=== PATIENT | male | born 1935 | race Caucasian/White ===

== ENCOUNTER 2016-12-10 08:37 | Emergency (ER) | payer MEDICARE, OTHER ==
[2016-12-10 08:49] VITALS: BP 139/78
--- NOTE | 2016-12-10 09:07 | UC ---
Respiratory Complaint HPI - HPI Summary HPI Summary: 81 yo male with sinus congestion/post nasal drip/cough and wheezing for about a month took ceftin which did not seem to help no CP no SOB no f/c - History of Current Complaint Chief Complaint: UCRespiratory Stated Complaint: COUGH, SINUS COMPLAINT Time Seen by Provider: 12/10/16 08:57 Hx Obtained From: Patient Onset/Duration: Gradual Onset, Lasting Weeks - 4 Timing: Constant Severity Initially: Mild Severity Currently: Moderate Pain Intensity: 2 Pain Scale Used: 0-10 Numeric Character: Cough: Productive - at times Aggravating Factors: Exertion, Recumbent Position Alleviating Factors: Nothing Associated Signs And Symptoms: Positive: Wheezing, Nasal Congestion, Sinus Discomfort - Allergies/Home Medications Allergies/Adverse Reactions: Allergies Allergy/AdvReac Type Severity Reaction Status Date / Time Sulfa Antibiotics Allergy Hives Verified 12/10/16 08:49 Home Medications: Home Medications Dextromethorphan LIQ(NF) [Scot-Tussin Diabetes CF (NF)] 10 mg PO BID 12/10/16 [ History Confirmed 12/10/16] GuaiFENesin DM* [Robitussin DM*] 5 ml PO Q6H PRN 12/10/16 [History Confirmed ] Guaifenesin-Codeine [Coditussin AC 200-10 mg/5Ml] 1 liq PO QPM 12/10/16 [ History Confirmed 12/10/16] guaiFENesin ER TAB [Mucinex*] 1,200 mg PO DAILY 12/10/16 [History Confirmed ] PMH/Surg Hx/FS Hx/Imm Hx Previously Healthy: Yes Endocrine History Of: Reports: Dyslipidemia Denies: Diabetes, Thyroid Disease, Hyperthyroidism, Hypothyroidism Cardiovascular History Of: Reports: Cardiac Disorders - CAD, stent performed 2015, Hypertension Denies: Pacemaker/ICD, Myocardial Infarction, Congestive Heart Failure, Atrial Fibrillation, Deep Vein Thrombosis, Bleeding Disorders Respiratory History Of: Denies: COPD, Asthma, Bronchitis, Pneumonia, Pulmonary Embolism GI/ History Of: Denies: Gastroesophageal Reflux, Ulcer, Gastrointestinal Bleed, Gall Bladder Disease, Kidney Stones, Diverticulitis, Renal Disease, Urosepsis Neurological History Of: Denies: TIA, CVA, Dementia, Seizures, Migraine Psychological History Of: Denies: Anxiety, Depression, Bipolar Disorder, Schizophrenia, Post Traumatic Stress Disorder Cancer History Of: Denies: Lung Cancer, Colorectal Cancer, Breast Cancer, Prostate Cancer, Cervical Cancer Other History Of: Anticoagulant Therapy Negative For: HIV, Hepatitis B - Aspirin and plavix., Hepatitis C - Surgical History Surgical History: Yes Surgery Procedure, Year, and Place: APPY, Cardiac Stent 07/17/16 - Family History Known Family History: Positive: Cardiac Disease, Hypertension, Diabetes - Social History Alcohol Use: Occasionally Substance Use Type: None Smoking Status (MU): Former Smoker Review of Systems Constitutional: Negative Skin: Negative Eyes: Negative ENT: Nasal Discharge Respiratory: Cough Cardiovascular: Negative Gastrointestinal: Negative Genitourinary: Negative Motor: Negative Neurovascular: Negative Musculoskeletal: Negative Neurological: Negative Psychological: Negative All Other Systems Reviewed And Are Negative: Yes Physical Exam Triage Information Reviewed: Yes Appearance: Well-Appearing, No Pain Distress, Well-Nourished Vital Signs: Initial Vital Signs Temp 97.8 F 12/10/16 08:40 Pulse 84 12/10/16 08:40 Resp 20 12/10/16 08:40 BP 139/78 12/10/16 08:40 Pulse Ox 98 12/10/16 08:40 Vital Signs Reviewed: Yes Eyes: Positive: Conjunctiva Clear. Negative: Conjunctiva Inflamed, Discharge ENT: Positive: Nasal congestion, Nasal drainage. Negative: Hearing grossly normal, Tonsillar swelling, Tonsillar exudate, Trismus, Muffled/hoarse voice Dental: Negative: Dental Fracture @, Abscess @ Respiratory: Positive: No respiratory distress, No accessory muscle use, Wheezing - with forced expiration Cardiovascular: Positive: RRR, No Murmur, Pulses Normal Musculoskeletal: Positive: ROM Intact, No Edema Neurological: Positive: Alert Psychological Exam: Normal Skin Exam: Normal UC Diagnostic Evaluation - Laboratory O2 Sat by Pulse Oximetry: 98 - normal/not hypoxic - Radiology Xray Interpretation: No Acute Changes Radiology Interpretation Completed By: Radiologist Respiratory Course/Dx - Differential Dx/Diagnosis Provider Diagnoses: acute bronchitis. sinusitis Discharge - Discharge Plan Condition: Stable Disposition: HOME Prescriptions: DOXYcycline CAP(*) [DOXYcycline 100MG CAP(*)] 100 mg PO BID #20 cap Patient Education Materials: Sinusitis (ED), Acute Bronchitis (ED) Referrals: Non Staff,Doctor [Primary Care Provider] - 5 Days Additional Instructions: use inhaler as directed
--- NOTE | 2016-12-10 09:20 | RAD ---
HISTORY: Cough COMPARISONS: May 31, 2012 VIEWS: 2: Frontal dual-energy and lateral views of the chest. FINDINGS: CARDIOMEDIASTINAL SILHOUETTE: The cardiomediastinal silhouette is normal. VIVIAN: The vivian are normal. PLEURA: The costophrenic angles are sharp. No pleural abnormalities are noted. LUNG PARENCHYMA: There is hyperinflation with flattening of the diaphragm and expansion of the AP diameter of the chest. ABDOMEN: The upper abdomen is clear. There is no subphrenic gas. BONES AND SOFT TISSUES: No bone or soft tissue abnormalities are noted. OTHER: None. IMPRESSION: HYPERINFLATION, CONSISTENT WITH COPD. NO ACTIVE CARDIOPULMONARY DISEASE.
[2016-12-10] MEDS ORDERED: Albuterol HFA INHALER* 8 gm MDI INH ONE (09:37)
== END 2016-12-10 09:56 | disposition home or self-care (01) ==
LOC: UCCORT 08:37
DX: J20.9 Acute bronchitis, unspecified (principal); J32.9 Chronic sinusitis, unspecified; Z88.2 Allergy status to sulfonamides; I25.10 Atherosclerotic heart disease of native coronary artery without angina pectoris; I10 Essential (primary) hypertension; Z79.01 Long term (current) use of anticoagulants
CPT/HCPCS: 71020; 99213; A9270-GY; G0463

== ENCOUNTER → 2018-05-13 07:32 | Day surgery (SDC) | payer MEDICARE, OTHER ==
--- NOTE | 2018-05-05 14:25 | HP ---
HISTORY AND PHYSICAL: DATE OF HISTORY AND PHYSICAL: 05/03/18 DATE OF ADMISSION: He is scheduled for surgery at [facility] on 05/13/18. ATTENDING PHYSICIAN: Dr. Bernstein.* (DICTATED BY CHUCKY EMMANUEL NP) CHIEF COMPLAINT: Left inguinal hernia and umbilical hernia. HISTORY OF PRESENT ILLNESS1: Jv Harp is an 82-year-old male who was referred to Dr. Bernstein by with a history of left inguinal hernia that has been symptomatic for the last few months. He notes discomfort when he drives, does any lifting, and plays golf. He notices at times a bulging mass in his groin. The patient also at his history and physical appointment noted that he also has an umbilical hernia, was examined by Dr. Bernstein. Both of these are not incarcerated and are reducible. Dr. Bernstein has discussed the nature and course of hernia repair with possible mesh and has discussed the material risks and relevant alternatives to surgery. These are reviewed with the patient at his preoperative appointment including, but not limited to infection, bleeding, poor healing, recurrence, and DVT. PAST MEDICAL HISTORY: The patient's most recent medical history is significant and that he was started on 04/29/18 levofloxacin for 14 days and will be finishing this just prior to surgery for prostatitis. He was seen at Urgent Care. He has in 2016 a history of heart stent placement for blockage of an artery on the right. This was done at [facility]. 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 His family doctor is Dr. Sixto Aquino. He also has a history of appendectomy. MEDICATIONS: 1. Valsartan 160 mg daily. 2. Hydrochlorothiazide 12.5 mg daily. 3. Atorvastatin calcium 20 mg daily. 4. He takes a low-dose 81 mg daily aspirin, which he is stopping a week prior to surgery. 5. Amlodipine besylate 2.5 mg. ALLERGIES: SULFA DRUGS. FAMILY HISTORY: Unremarkable to detailed questioning. Both parents of old age. SOCIAL HISTORY: The patient is retired. He is a former smoker. He smoked a pack a day for 10 days and quit in 1967. He has social alcohol use. REVIEW OF SYSTEMS: He denied problems with anesthesia. He denied bleeding tendencies but regularly takes a daily baby aspirin. He has not had any recent exposure to any communicable disease, but he does not the recent episode of prostatitis. PHYSICAL EXAMINATION GENERAL: Jv Harp is an 82-year-old male, well developed, well nourished in no acute distress. Appears younger than stated age. VITAL SIGNS: Blood pressure 128/72, pulse is 62, respirations 16, height 70 inches, and weight 190 pounds. HEENT: Within normal limits. Teeth are in good repair. Pharynx clear. EOMs intact. Pupils are equal, round, and reactive to light and accommodation. NECK: Supple. Thyroid nonpalpable. No cervical adenopathy. SPINE: Normal curvature. No spine or CVA tenderness. CHEST: Lungs clear except for the fact of diminished breath sounds in the left upper lobe. ABDOMEN: Soft and nontender. Positive bowel sounds. Positive tympany. There is a palpable reducible left inguinal hernia and umbilical hernia. EXTREMITIES: +2 symmetrical radial pulses. NEUROLOGIC: Alert and oriented x3. The rest of the exam was grossly intact. LOCAL EXAM: Shows a bulging mass of the umbilicus which is reducible as well as a bulging mass in the left groin which is reducible. IMPRESSION: Left inguinal hernia and umbilical hernia. PLAN/RECOMMENDATIONS: Same-day surgery admission to Dr. Bernstein's service for left inguinal hernia repair with possible mesh and umbilical hernia with possible mesh. CHUCKY EMMANUEL NP [id number]/CPS #: [id number] MTDJorge L
[~2018-05-13 07:32] MED LIST: Buffered Lidocaine 0.9% SYRIN* 5 ML/SYR SYRINGE INTRADERM ONE; Bupivacaine 0.5% W/EPI SDV* 30 ML VIAL ONE; Dexamethasone IV* 4 MG/ML 1 ML (4 MG) ONE; Dexamethasone TAB* 4 MG ONE; Dexamethasone TAB* 4 MG PO ONE; DiMENhydriNATE IV* 50 MG/ML VIAL IV PUSH PRN; Famotidine IV* 10 MG/ML 2 ML (20 mg) IV ONE; Famotidine IV* 10 MG/ML 2 ML (20 mg) ONE; KETAMINE HCL* 50 MG/ML 10 ML VIAL ONE; Ketorolac INJ* 30 MG/ML 1 ML VIAL ONE; Lidocaine 1% INJ* 10 MG/ML 30 ML SDV ONE; Lidocaine 2% PF * 5 ML VIAL ONE; Midazolam* 1 MG/ML 5 ML VIAL (5 MG) ONE; Naloxone* 0.4 MG/ML 1 ML VIAL IV PRN; Ondansetron ODT TAB* 4 MG ONE; Ondansetron TAB* 4 MG PO ONE; PROCHLORPERAZINE INJ 5 MG/ML 2 ML VIAL IV PRN; Propofol* 10 MG/ML 20 ML BTL IV PUSH ONE; ceFAZolin 2 GM PREMIX (*) 2 GM/50 ML BAG IVPB ONE; fentaNYL* 50 MCG/ML 2 ML VIAL (100 MCG VIAL) IV PRN; fentaNYL* 50 MCG/ML 2 ML VIAL (100 MCG VIAL) ONE; oxyCODONE/Acetamin 5/325 MG* TAB PO PRN
[2018-05-13 10:58] VITALS: BP 126/65
--- NOTE | 2018-05-13 13:40 | OP ---
DATE OF OPERATION: 05/13/18 - [facility] DATE OF : 39 SURGEON: Elvin Bernstein MD. MANAGER SOFTWARE: Rosa Maria Estevez NP. ANESTHESIA: Local plus MAC. PRE-OP DIAGNOSES: Left inguinal hernia repair and umbilical hernia repair. POST-OP DIAGNOSES: Left direct inguinal hernia and umbilical hernia. OPERATIVE PROCEDURES: 1. Left inguinal hernia repair with plug-mesh technique. 2. Umbilical hernia repair with Ventralex small [place] mesh. ESTIMATED BLOOD LOSS: Less than 10 cc. DESCRIPTION OF PROCEDURE: The patient was taken to the procedure room. Appropriate marking of the surgical site was done. The patient was then taken to the operating room. He received preoperative antibiotics. He was prepped and draped in the usual sterile fashion. We started with the left inguinal hernia, infiltrating on the left groin area. After adequate anesthesia was given, an oblique incision was made over the left groin area. The incision was carried down through the skin and subcutaneous tissue. Bleeders were controlled by electrocoagulation. The Jade fascia was then exposed and opened along the incision line. The external oblique fascia was then exposed. Lidocaine 1% was used to infiltrate under the external oblique fascia and this was then opened along the incision line through the external ring. After this was done, identification of the ilioinguinal nerve was done. This was then mobilized and retracted out of the way. The cord was identified. There was large direct component as well as a lipoma of the cord. We then proceeded to isolate the cord at the pubic tubercle, encircled it with a [place] drain. The cremasteric fibers were then opened and dissection of the cord was done. No direct sac was found. There was a large lipoma of the cord connected to the large direct defect. At this point, we then proceeded to remove the lipoma off the cord. Dissected the tissues at the level of the internal ring to allow for a plug-mesh technique and after this was done, a polypropylene plug was used to contain the fat of the properitoneal space and the area of the bladder attached to it. An onlay mesh was then laid over the Hesselbach's triangle. We then proceeded to attach the onlay mesh to the plug with 2-0 Prolene suture and we anchored then the mesh to the pubic tubercle, shelving edge of Poupart's ligament and conjoined tendon and internal oblique fascia by interrupted sutures using 2-0 Prolene. After this was done, the entire Hesselbach's triangle was completely covered. The nerves were identified and they were not constricted by sutures and there were freed. No bleeding was noted and we then proceeded to close the external oblique fascia with a continuous running 4-0 Vicryl suture and the subcutaneous tissue was then closed with interrupted 4-0 Vicryl suture and the skin with subcuticular 4-0 Prolene suture and Steri- Strips. After this was completed, we then proceed to infiltrate local anesthesia around the umbilical area. A smiling face incision was performed and the incision was carried down through the skin, subcutaneous tissue, exposure of the umbilical sac was done. Transection by sharp dissection was done and lifting the umbilicus from the fascia. We remained in the properitoneal space pushing inside the sac and the fatty tissue creating a space above the properitoneal space and under the fascia and after adequate space was obtained and no bleeding was noted, we then proceeded to apply a small onondaga mesh Ventralex 4 cm in diameter and this was then introduced and sprung open and the 2 wings of the mesh were pulled back towards the fascia and anchored in place with a 2-0 Prolene suture. After this was completed, the umbilicus was tagged back to the fascia and the subcutaneous tissue was closed with interrupted 4-0 Vicryl suture and a subcuticular 4-0 Prolene suture for the skin. The patient tolerated the procedure well and he was taken in good condition to recovery room. [id number]/[facility] #: [id number] HIEU
== END | disposition home or self-care (01) ==
LOC: OREAST 07:32
PROVIDERS: ATTEND Surgery
DX: K40.90 Unilateral inguinal hernia, without obstruction or gangrene, not specified as recurrent (principal); K42.9 Umbilical hernia without obstruction or gangrene; Z87.891 Personal history of nicotine dependence; Z85.118 Personal history of other malignant neoplasm of bronchus and lung; I10 Essential (primary) hypertension; I25.10 Atherosclerotic heart disease of native coronary artery without angina pectoris; Z95.5 Presence of coronary angioplasty implant and graft
CPT/HCPCS: A9270-GY; C1781; J0690; J1100; J1885; J2250; J2704; J3010; J8540

== ENCOUNTER 2018-09-23 09:07 | Emergency (ER) | payer MEDICARE, OTHER ==
--- OUTSIDE RECORDS SUMMARY | 2018-09-23 09:26 | XMS REPORT | Continuity of Care Document ---
:1935 External Reference #:[id number] Author Name Kb Owen M.D. Address [address] [place] [address] Care Team Providers Name Role Phone Sixto Aquino MD Care Team Information [employer] Counselor Unavailable Sixto Aquino MD Primary Care Physician Unavailable Payers Type Date Identification Numbers Payment Provider Subscriber Policy Number: [id number] Medicare [place] J[place] Harp PayID: [id number] [address] [place] [address] Policy Number: [id number] [facility] Jv Harp PayID: [id number] [address] [place] [address] Advance Directives Description No Information Available Problems Date Description Provider Status 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 Deviated nasal septum Active 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 Posterior rhinorrhea Active Onset: 01/17/2018 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 Head and neck swelling Resolved Resolved: 03/25/2019 Family History Description No Information Available Social History Type Date Description Comments Sex Unknown Marital Status Legal Status: 3 Children Occupation Retired ETOH Use Drinks 5 times per week Tobacco Use Start: Unknown End: Patient is a former Quit 1968 smoked for Unknown smoker 10 years 1 pack per day Recreational Drug Use Denies Drug Use Allergies, Adverse Reactions, Alerts Date Description Reaction Status Severity Comments 04/23/2018 Sulfonamides Active Moderate Medications Medication Date Status Form Strength Qnty SIG Indications Ordering Provider Atorvastatin 01/17 Active Tablets 20mg 1 by Unknown Calcium mouth every day Fluticasone 01/17 Active Suspension 50mcg/Act 2 Unknown Propionate spray(s) in each nostril daily Irbesartan Active Tablets 75mg Unknown /0000 Hydrochlorothiazide Active Capsules 12.5mg 1 by Unknown /0000 mouth every day Amlodipine Besylate Active Tablets 5mg 1 by Unknown /0000 mouth every day Aspirin Adult Low Active Tablets DR 81mg Unknown Dose /0000 Immunizations CPT Code Status Date Vaccine Lot # U-Pneum Given 09/21/2018 Pneumococcal,Unspecified U-Flu Given 09/21/2018 Influenza,Unspecified Vital Signs Date Vital Result Comment 09/21/2018 9:51am Height 70 inches 5'10" Weight 197.00 lb BMI (Body Mass Index) 28.3 kg/m2 BP Systolic 152 mmHg BP Diastolic 84 mmHg 03/30/2018 11:37am Height 70 inches Weight 189.00 lb BMI (Body Mass Index) 27.1 kg/m2 BP Systolic 126 mmHg BP Diastolic 82 mmHg 01/17/2018 3:57pm Height 70 inches Weight 190.00 lb BMI (Body Mass Index) 27.3 kg/m2 BP Systolic 118 mmHg BP Diastolic 78 mmHg Results Description No Information Available Procedures Date Code Description Status 09/21/2018 14559 Remove Impacted Cerumen Completed 03/30/2018 63234 Echography Soft Tissue Head & Neck Completed 02/10/2018 83733 Echography Soft Tissue Head & Neck Completed 01/19/2018 11773 Echography Soft Tissue Head & Neck Completed Encounters Type Date Location Provider Dx Diagnosis Office Visit 09/21/2018 [facility] Kb Owen, D37.030 [facility] 10[facility] uncertain behavior of the parotid salivary gland H93.11 Tinnitus, right ear H61.21 Impacted cerumen, right ear Plan of Treatment 09/21/2018 - Kb Owen M.D.D37.030 Neoplasm of uncertain behavior of the parotid salivary pbaldpO39.11 Tinnitus, right earH61.21 Impacted cerumen, right earNew Xrays:Fna-Fine Needle Aspiration W/ Image Guidance, Ordered: Comments:1. Right parotid mass. Serial sonograms are demonstrating some increase in the size of the mass. His prior fine-needle aspiration demonstrated atypical epithelial cells in a background of debris. We are going to get a repeat ultrasound-guided fine-needle aspiration.2. Intermittent right beating tinnitus. 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 Cerumen was cleared from the right external auditory canal and demonstrated no other pathology of the tympanic membrane or middle ear. For now we will continue to observe this symptom. Talked about the options of muscle relaxants or middle ear muscle lysis surgery.Follow up:after testing
[2018-09-23 09:43] VITALS: BP 128/81
[2018-09-23] MEDS ORDERED: Acetaminophen TAB* 325 MG PO ONE (09:46)
[2018-09-23] MEDS ORDERED: Ibuprofen TAB* 600 MG PO ONE (09:51)
--- NOTE | 2018-09-23 10:54 | ED ---
Respiratory - HPI Summary HPI Summary: 82 yr old male with the complaint of two days of coughing, non productive, runny nose, myalgias, chills. He states he had a left upper lobe resection for cancer earlier in the year with complete cure. Dr Aquino is his primary doctor in [place], [place]. Patient denies SOB. He has others that are ill in the household. - History of Current Complaint Chief Complaint: UCRespiratory Stated Complaint: COUGH FEVER Time Seen by Provider: 09/23/18 09:45 Pain Intensity: 2 - Allergy/Home Medications Allergies/Adverse Reactions: Allergies Allergy/AdvReac Type Severity Reaction Status Date / Time Sulfa (Sulfonamide Allergy Hives Verified 09/23/18 09:39 Antibiotics) Home Medications: Home Medications Acetaminophen TAB* [Tylenol TAB*] 650 - 975 mg PO Q6H PRN 09/23/18 [History Confirmed 09/23/18] PMH/Surg Hx/FS Hx/Imm Hx Endocrine/Hematology History: Reports: Hx Anticoagulant Therapy Denies: Hx Diabetes, Hx Thyroid Disease Cardiovascular History: Reports: Hx Coronary Artery Disease - cardiac stent 2015, Hx Hypertension Denies: Hx Congestive Heart Failure, Hx Deep Vein Thrombosis, Hx Myocardial Infarction, Hx Pacemaker/ICD Respiratory History: Reports: Hx Sleep Apnea, Other Respiratory Problems/ Disorders - Adenocarcinoma Lung, 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 Denies: Hx Asthma, Hx Chronic Obstructive Pulmonary Disease (COPD), Hx Lung Cancer, Hx Pneumonia, Hx Pulmonary Embolism GI History: Denies: Hx Gall Bladder Disease, Hx Gastrointestinal Bleed, Hx Ulcer, Hx Urosepsis History: Denies: Hx Kidney Stones, Hx Renal Disease Musculoskeletal History: Reports: Hx Arthritis Sensory History: Reports: Hx Contacts or Glasses - glasses Denies: Hx Hearing Aid Opthamlomology History: Reports: Hx Contacts or Glasses - glasses Neurological History: Denies: Hx Dementia, Hx Migraine, Hx Seizures, Hx Transient Ischemic Attacks (TIA) Psychiatric History: Denies: Hx Anxiety, Hx Depression, Hx Schizophrenia, Hx Bipolar Disorder - Cancer History Cancer Type, Location and Year: Adenocarcinoma Lung, 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 Hx Chemotherapy: No - Surgical History Surgery Procedure, Year, and Place: Umbilical and left Inguinal Herniorrhapies, 04/2018, [place]; Left Upper Lung Lobe Wedge Section, 11/2017, [place]; Cardiac Stent, 2015, [place]; Appendectomy, 80's or 90's Hx Anesthesia Reactions: No Infectious Disease History: No Infectious Disease History: Denies: Traveled Outside the [place] in Last 30 Days - Family History Known Family History: Positive: Cardiac Disease, Hypertension, Diabetes - Social History Alcohol Use: Occasionally Substance Use Type: Reports: None Smoking Status (MU): Former Smoker Amount Used/How Often: 10 years 1ppd Length of Time of Smoking/Using Tobacco: 1 PPD x 10 Years Review of Systems Positive: Chills Positive: Cough All Other Systems Reviewed And Are Negative: Yes Physical Exam Triage Information Reviewed: Yes Vital Signs On Initial Exam: Initial Vitals Temp Pulse Resp BP Pulse Ox 99.7 F 113 24 128/81 94 09/23/18 09:37 09/23/18 09:37 09/23/18 09:37 09/23/18 09:37 09/23/18 09:37 Vital Signs Reviewed: Yes Appearance: Positive: Well-Appearing, No Pain Distress, Well-Nourished Skin: Positive: Warm, Skin Color Reflects Adequate Perfusion Head/Face: Positive: Normal Head/Face Inspection Eyes: Positive: EOMI ENT: Positive: Pharyngeal erythema, Nasal congestion, Nasal drainage, TMs normal Neck: Positive: Nontender Respiratory/Lung Sounds: Positive: Other - faint crackles lower left lung. Negative: Stridor, Wheezes Cardiovascular: Positive: RRR. Negative: Murmur Abdomen Description: Positive: Nontender Musculoskeletal: Positive: Strength/ROM Intact Neurological: Positive: Sensory/Motor Intact, Alert, Oriented to Person Place, Time, CN Intact II-III Psychiatric: Positive: Normal - Talia Coma Scale Best Eye Response: 4 - Spontaneous Best Motor Response: 6 - Obeys Commands Best Verbal Response: 5 - Oriented Coma Scale Total: 15 Diagnostics - Vital Signs Vital Signs Temp Pulse Resp BP Pulse Ox 09/23/18 09:37 99.7 F 113 24 128/81 94 - Laboratory Lab Results: Lab Results 09/23/18 Range/Units 09:50 Influenza A (Rapid) Negative (Negative) Influenza B (Rapid) Negative (Negative) Lab Statement: Any lab studies that have been ordered have been reviewed, and results considered in the medical decision making process. - Radiology chest pa lat Radiology Interpretation Completed By: Radiologist - lingular infiltrate Disposition - Course Course Of Treatment: 82 yr old with lingular infiltrate. Rx with Cefdinir and levaquin. FU with his primary care doctor. - Diagnoses Provider Diagnoses: Lingular pneumonia Discharge - Sign-Out/Discharge Documenting (check all that apply): Patient Departure All imaging exams completed and their final reports reviewed: Yes - Discharge Plan Condition: Good Disposition: HOME Prescriptions: Cefdinir [Cefdinir 300 MG CAP] 300 mg PO BID #20 cap DOXYcycline CAP(*) [DOXYcycline 100MG CAP(*)] 100 mg PO BID #20 cap Patient Education Materials: Bacterial Pneumonia (ED) Referrals: Miles KO,Alfonso Arcos [Primary Care Provider] - 2 Days Additional Instructions: be sure to see Dr Aquino early next week for follow up. You will require a repeat chest xray with Dr Aquino in September for follow up to be sure this clears up all the way. - Billing Disposition and Condition Condition: GOOD Disposition: Home
== END 2018-09-23 11:09 | disposition home or self-care (01) ==
LOC: UCCORT 09:07
DX: J18.9 Pneumonia, unspecified organism (principal); Z87.891 Personal history of nicotine dependence; Z88.1 Allergy status to other antibiotic agents
CPT/HCPCS: 71046; 99212; A9270-GY; G0463